=== PATIENT | female | born 1965 | race American Indian/Alaskan Native ===

== ENCOUNTER 2024-03-04 13:44 | Emergency (ER) | payer BC, OTHER ==
[~2024-03-04] VITALS: Ht 162.6 cm; Wt 114.5 kg
[2024-03-04 13:54] VITALS: TEMP 98
[2024-03-04] MEDS: normal saline 1000ml 1,000 ML IV ONE (14:12)
[2024-03-04 14:30] LABS: EOSINOPHILS # (AUTO) 0.1 X10'3 (0-0.9); EOSINOPHILS % (AUTO) 2.5 % (0-6); HEMATOCRIT 42.1 % (35.0-45.0); HEMOGLOBIN 14.6 g/dl (12.0-16.0); LYMPHOCYTES # (AUTO) 0.9 X10'3 (1.1-4.8); LYMPHOCYTES % (AUTO) 19.1 % (21-51); MEAN CORPUSCULAR HGB CONC 34.6 g/dL (33.0-36.5); MEAN CORPUSCULAR VOLUME 86.7 FL (78-98); MEAN PLATELET VOLUME 7.7 FL (7.4-10.4); MONOCYTES # (AUTO) 0.3 X10'3 (0-0.9); MONOCYTES % (AUTO) 6.2 % (2-12); NEUTROPHILS # (AUTO) 3.3 X10'3 (1.8-7.7); NEUTROPHILS % (AUTO) 71.2 % (42-75); PLATELET COUNT 286 X10'3 (140-440); RED BLOOD COUNT 4.85 X10'6 (4.20-5.60); RED CELL DISTRIBUTION WIDTH 15.1 % (11.5-14.5); WHITE BLOOD COUNT 4.7 X10'3 (4.5-11.0)
[2024-03-04 14:41] LABS: ALANINE AMINOTRANSFERASE 80 U/L (12-78); ALBUMIN 3.8 G/DL (3.4-5.0); ALBUMIN/GLOBULIN RATIO 1.1 (1.1-1.5); ALKALINE PHOSPHATASE 65 IU/L (46-116); ANION GAP 8 (8-16); ASPARTATE AMINO TRANSFERASE 41 U/L (10-37); BILIRUBIN,TOTAL 0.5 MG/DL (0.1-1.0); BLOOD UREA NITROGEN 13 MG/DL (7-18); BUN/CREATININE RATIO 18.1 (10.0-20.0); CALCIUM 8.5 MG/DL (8.5-10.1); CHLORIDE 108 MMOL/L (99-107); CREATININE 0.72 MG/DL (0.40-0.90); GLUCOSE 142 MG/DL (70-104); LIPASE 26 U/L (16-77); POTASSIUM 3.5 MMOL/L (3.5-5.1); SODIUM 142 MMOL/L (135-145); TOTAL CARBON DIOXIDE 26.1 MMOL/L (24-32); TOTAL PROTEIN 7.2 G/DL (6.4-8.2); eCRCL 74 ML/MIN; eGFR 83 ML/MIN
[2024-03-04 15:30] VITALS: BP 137/93; PULSE 94; RESP 16; O2SAT 97
[2024-03-04] MEDS ORDERED: MECL-231 PO (15:31)
[2024-03-04] MEDS: ondansetron/PF 4mg/2ml inj IV ONE (15:54)
== END 2024-03-04 16:11 | disposition home or self-care (01) ==
LOC: ER 13:44
DX: R42 Dizziness and giddiness (principal); Z88.8 Allergy status to other drugs, medicaments and biological substances
CPT/HCPCS: 36415; 80053; 83690; 85025; 93005; 96361; 96374; 99284; J2405; J7030

== ENCOUNTER 2024-03-08 18:57 | Inpatient (IN) | payer BC, OTHER ==
[~2024-03-08] VITALS: Ht 162.6 cm; Wt 113.6 kg
[~2024-03-08 18:57] MED LIST: MECL-231 PO
[2024-03-08 19:25] LABS: BASOPHILS # (AUTO) 0.1 X10'3 (0-0.2); BASOPHILS % (AUTO) 1.1 % (0-1); EOSINOPHILS # (AUTO) 0.4 X10'3 (0-0.9); EOSINOPHILS % (AUTO) 7.1 % (0-6); HEMATOCRIT 47.2 % (35.0-45.0); HEMOGLOBIN 15.9 g/dl (12.0-16.0); LYMPHOCYTES # (AUTO) 2.1 X10'3 (1.1-4.8); LYMPHOCYTES % (AUTO) 35.4 % (21-51); MEAN CORPUSCULAR HEMOGLOBIN 29.4 PG (27.0-31.0); MEAN CORPUSCULAR HGB CONC 33.7 g/dL (33.0-36.5); MEAN CORPUSCULAR VOLUME 87.3 FL (78-98); MEAN PLATELET VOLUME 7.5 FL (7.4-10.4); MONOCYTES # (AUTO) 0.5 X10'3 (0-0.9); MONOCYTES % (AUTO) 9.1 % (2-12); NEUTROPHILS # (AUTO) 2.8 X10'3 (1.8-7.7); NEUTROPHILS % (AUTO) 47.3 % (42-75); PLATELET COUNT 291 X10'3 (140-440); RED BLOOD COUNT 5.41 X10'6 (4.20-5.60); RED CELL DISTRIBUTION WIDTH 14.8 % (11.5-14.5); WHITE BLOOD COUNT 5.9 X10'3 (4.5-11.0)
[2024-03-08 19:43] LABS: ALBUMIN 3.7 G/DL (3.4-5.0); ANION GAP 9 (8-16); BLOOD UREA NITROGEN 12 MG/DL (7-18); BUN/CREATININE RATIO 13.3 (10.0-20.0); CALCIUM 8.9 MG/DL (8.5-10.1); CHLORIDE 102 MMOL/L (99-107); GLUCOSE 134 MG/DL (70-104); POTASSIUM 3.9 MMOL/L (3.5-5.1); PRO BRAIN NATRIURETIC PEPTIDE 59 PG/ML (0-125); SODIUM 136 MMOL/L (135-145); TOTAL CARBON DIOXIDE 25.4 MMOL/L (24-32); eCRCL 59 ML/MIN; eGFR 64 ML/MIN
[2024-03-08 20:51] LABS: APTT 26 SECONDS (22-32); PROTHROMBIN TIME 10.4 SECONDS (9.0-12.0)
[2024-03-08] MEDS ORDERED: magnesium 4gm in 100ml NS 100 ML IV PRN (21:55)
[2024-03-08] MEDS ORDERED: mag hydrox/Alum hydrox/simeth 30ml oral suspension PO PRN (21:55)
[2024-03-08] MEDS ORDERED: magnesium 2GM in 50ml NS 50 ML IV PRN (21:55)
[2024-03-08] MEDS ORDERED: ondansetron/PF 4mg/2ml inj IV PRN (21:55)
[2024-03-08] MEDS ORDERED: magnesium Cl slow-release 64mg tablet PO PRN (21:55)
[2024-03-08] MEDS ORDERED: magnesium hydroxide 30ml (MOM) UD suspension PO PRN (21:55)
[2024-03-08] MEDS ORDERED: potassium Cl 40MEQ/1/2NS 520ml 520 ML IV PRN (21:55)
[2024-03-08] MEDS ORDERED: potassium Cl 20 mEq SR tablet PO PRN ×2 (21:55)
[2024-03-08] MEDS: ringers solution, lacted 1,000 ML IV ONE (22:11)
[2024-03-08] MEDS: aspirin 325mg tablet PO ONE ×2 (22:11)
[2024-03-08 22:20] LABS: HEMOGLOBIN A1C 5.6 % (4.5-6.2)
[2024-03-08] MEDS: atorvastatin 20mg tablet PO SCH (22:26)
[2024-03-08] MEDS ORDERED: NAPR-56 PO (22:27)
[2024-03-08 22:49] LABS: FREE T4 (FREE THYROXINE) 0.87 NG/DL (0.73-1.40); MAGNESIUM 2.2 MG/DL (1.5-2.4); THYROID STIMULATING HORMONE 1.15 ulU/ml (0.34-4.50)
[2024-03-08 23:45] VITALS: BP 157/111; PULSE 96; TEMP 97.7; O2SAT 97
[2024-03-08 23:55] VITALS: RESP 16; O2SAT 94
[2024-03-09] VITALS (9 sets, daily range): BP systolic 127–142; BP diastolic 81–99; PULSE 76–107; RESP 14–18; TEMP 97.5–98.7; O2SAT 94–97
[2024-03-09] MEDS: normal saline 1000ml 1,000 ML IV SCH (00:30)
[2024-03-09 07:01] LABS: BASOPHILS # (AUTO) 0.1 X10'3 (0-0.2); EOSINOPHILS # (AUTO) 0.3 X10'3 (0-0.9); EOSINOPHILS % (AUTO) 6.1 % (0-6); HEMATOCRIT 42.2 % (35.0-45.0); HEMOGLOBIN 14.2 g/dl (12.0-16.0); LYMPHOCYTES # (AUTO) 1.5 X10'3 (1.1-4.8); LYMPHOCYTES % (AUTO) 27.7 % (21-51); MEAN CORPUSCULAR HEMOGLOBIN 29.4 PG (27.0-31.0); MEAN CORPUSCULAR HGB CONC 33.6 g/dL (33.0-36.5); MEAN CORPUSCULAR VOLUME 87.3 FL (78-98); MEAN PLATELET VOLUME 7.5 FL (7.4-10.4); MONOCYTES # (AUTO) 0.5 X10'3 (0-0.9); MONOCYTES % (AUTO) 9.4 % (2-12); NEUTROPHILS % (AUTO) 55.8 % (42-75); PLATELET COUNT 283 X10'3 (140-440); RED BLOOD COUNT 4.84 X10'6 (4.20-5.60); RED CELL DISTRIBUTION WIDTH 14.9 % (11.5-14.5); WHITE BLOOD COUNT 5.3 X10'3 (4.5-11.0)
[2024-03-09 07:20] LABS: ANION GAP 9 (8-16); BLOOD UREA NITROGEN 17 MG/DL (7-18); CALCIUM 8.4 MG/DL (8.5-10.1); CHLORIDE 106 MMOL/L (99-107); CHOL/HDL RATIO 2.8 (0.00-4.99); CHOLESTEROL 132 MG/DL (0-200); CREATININE 0.74 MG/DL (0.40-0.90); GLUCOSE 123 MG/DL (70-104); HDL CHOLESTEROL 48 MG/DL (35-60); LDL CHOLESTEROL 77 MG/DL (50-100); POTASSIUM 3.6 MMOL/L (3.5-5.1); SODIUM 141 MMOL/L (135-145); TOTAL CARBON DIOXIDE 25.7 MMOL/L (24-32); TRIGLYCERIDES 79 MG/DL (20-135); eCRCL 72 ML/MIN; eGFR 81 ML/MIN
[2024-03-09] MEDS: K and/or MAG REPLACEMENT MC SCH (08:00)
[2024-03-09] MEDS: aspirin 81mg, enteric-coated 1 TAB TABLET.DR PO SCH (08:08)
[2024-03-09] MEDS: acetaminophen 325mg tablet PO PRN ×2 (09:05→19:33)
[2024-03-09] MEDS ORDERED: regadenoson 0.4mg/5ml syringe IV PRN (10:40)
[2024-03-09] MEDS ORDERED: aminophylline 250mg/10ml inj. IV PRN (10:40)
[2024-03-09] MEDS ORDERED: metoprolol tartrate 1mg/ml inj IV PRN (10:40)
[2024-03-09] MEDS: nitroGLYCERIN 0.4mg SUBLingual tab SL PRN (13:53)
[2024-03-10] MEDS ORDERED: atorvastatin 20mg tablet PO SCH (08:00)
== END 2024-03-09 20:30 | disposition left against medical advice (07) | DRG 93 ==
LOC: ER 18:57 → UNDOADMIN 22:01 → ORTHO 4S 22:01
PROVIDERS: ADMIT Surgery Surgical Critical Care; ATTEND Family Medicine
PROC: B3251ZZ Computerized Tomography (CT Scan) of Bilateral Common Carotid Arteries using Low Osmolar Contrast (ICD-10-PCS; principal; 2024-03-08)
PROC: B32G1ZZ Computerized Tomography (CT Scan) of Bilateral Vertebral Arteries using Low Osmolar Contrast (ICD-10-PCS; 2024-03-08)
PROC: B32R1ZZ Computerized Tomography (CT Scan) of Intracranial Arteries using Low Osmolar Contrast (ICD-10-PCS; 2024-03-08)
PROC: B3281ZZ Computerized Tomography (CT Scan) of Bilateral Internal Carotid Arteries using Low Osmolar Contrast (ICD-10-PCS; 2024-03-08)
DX: R20.2 Paresthesia of skin (principal); Z53.21 Procedure and treatment not carried out due to patient leaving prior to being seen by health care provider; R42 Dizziness and giddiness; R20.0 Anesthesia of skin; R79.89 Other specified abnormal findings of blood chemistry; Z88.5 Allergy status to narcotic agent; Z79.899 Other long term (current) drug therapy
CPT/HCPCS: 36415; 70551; 71045; 80048; 80061; 83036; 83735; 83880; 84439; 84443; 84484; 85025; 85610; 85730; 86885; 86900; 86901; 87081; 93005; 93306; A9500; G0378; J7030; J7120

== ENCOUNTER 2024-05-19 09:38 | Outpatient (CLI) | payer BC, OTHER ==
[~2024-05-19] VITALS: Ht 162.6 cm; Wt 99.8 kg
[~2024-05-19 09:38] MED LIST changes: +NAPR-56 PO
[2024-05-19] MEDS: albuterol 2.5 MG/3 ML nebule NEB ONE (10:05)
[2024-05-19 10:06] VITALS: PULSE 86; RESP 18; O2SAT 94
[2024-05-19 10:17] VITALS: PULSE 87; RESP 18
== END 2024-05-19 23:59 | disposition home or self-care (01) ==
LOC: RT 09:38
PROVIDERS: ATTEND Nurse Practitioner Family
DX: R94.2 Abnormal results of pulmonary function studies (principal); J44.1 Chronic obstructive pulmonary disease with (acute) exacerbation
CPT/HCPCS: 94060; 94760; J7120; C1758

== ENCOUNTER 2024-12-17 09:07 | Emergency (ER) | payer BC, OTHER ==
[~2024-12-17] VITALS: Ht 162.6 cm; Wt 103.7 kg
[2024-12-17] MEDS: fentaNYL/PF 50MCG/1 ML 2ML syringe IV ONE (10:07)
[2024-12-17] MEDS: ondansetron/PF 4mg/2ml inj IV ONE (10:08)
[2024-12-17] MEDS: normal saline 1000ML IV soln IVB ONE (10:08)
[2024-12-17 10:19] LABS: BILIRUBIN,URINE NEGATIVE (Neg); CLARITY,URINE CLEAR (Clear); COLOR,URINE YELLOW (Yellow); GLUCOSE, URINE NEGATIVE (Neg); KETONES,URINE NEGATIVE (Neg); LEUKOCYTE ESTERASE ,URINE NEGATIVE (Neg); NITRITES, URINE NEGATIVE (Neg); OCCULT BLOOD,URINE LARGE (Neg); PH,URINE 5.5 (4.8-8.0); PROTEIN,URINE NEGATIVE (Neg); UROBILINOGEN,URINE 0.2 E.U/dL (0.2-1.0)
[2024-12-17 10:32] LABS: BASOPHILS # (AUTO) 0.1 X10'3 (0-0.2); BASOPHILS % (AUTO) 0.9 % (0-1); EOSINOPHILS # (AUTO) 0.2 X10'3 (0-0.9); EOSINOPHILS % (AUTO) 2.6 % (0-6); HEMATOCRIT 41.1 % (35.0-45.0); HEMOGLOBIN 14.1 g/dl (12.0-16.0); LYMPHOCYTES # (AUTO) 1.2 X10'3 (1.1-4.8); LYMPHOCYTES % (AUTO) 14.6 % (21-51); MEAN CORPUSCULAR HGB CONC 34.3 g/dL (33.0-36.5); MEAN CORPUSCULAR VOLUME 87.3 FL (78-98); MEAN PLATELET VOLUME 7.5 FL (7.4-10.4); MONOCYTES # (AUTO) 0.6 X10'3 (0-0.9); MONOCYTES % (AUTO) 6.9 % (2-12); NEUTROPHILS # (AUTO) 6.3 X10'3 (1.8-7.7); PLATELET COUNT 307 X10'3 (140-440); RED BLOOD COUNT 4.71 X10'6 (4.20-5.60); RED CELL DISTRIBUTION WIDTH 14.2 % (11.5-14.5); WHITE BLOOD COUNT 8.4 X10'3 (4.5-11.0)
[2024-12-17 10:45] LABS: ALANINE AMINOTRANSFERASE 40 U/L (12-78); ALBUMIN 3.6 G/DL (3.4-5.0); ALBUMIN/GLOBULIN RATIO 0.9 (1.1-1.5); ALKALINE PHOSPHATASE 77 IU/L (46-116); ANION GAP 12 (8-16); ASPARTATE AMINO TRANSFERASE 23 U/L (10-37); BILIRUBIN,DIRECT 0.1 MG/DL (0-0.3); BILIRUBIN,TOTAL 0.3 MG/DL (0.1-1.0); BLOOD UREA NITROGEN 17 MG/DL (7-18); BUN/CREATININE RATIO 23.9 (10.0-20.0); CALCIUM 8.7 MG/DL (8.5-10.1); CHLORIDE 107 MMOL/L (99-107); CREATININE 0.71 MG/DL (0.40-0.90); GLUCOSE 130 MG/DL (70-104); LIPASE 26 U/L (16-77); POTASSIUM 3.7 MMOL/L (3.5-5.1); SODIUM 142 MMOL/L (135-145); TOTAL CARBON DIOXIDE 23.4 MMOL/L (24-32); TOTAL PROTEIN 7.6 G/DL (6.4-8.2); eCRCL 74 ML/MIN; eGFR 84 ML/MIN
[2024-12-17 11:01] LABS: UA COLLECTION TYPE CLN CATCH MIDSTREAM
[2024-12-17 11:03] LABS: RBC,URINE 20-50 /HPF (0-2); WBC,URINE NONE SEEN /HPF (0-4)
[2024-12-17 11:04] LABS: BACTERIA,URINE FEW /HPF (Neg); MUCUS STRANDS NONE SEEN /LPF (Neg); SQUAMOUS EPITHELIAL CELL,UR NONE SEEN /LPF (FEW)
[2024-12-17] MEDS ORDERED: iohexol 300mg/ml 100ml inj. ONE (11:14)
[2024-12-17] MEDS: ketorolac trometh 15mg/ml vial 15 MG/ML ML IV ONE ×2 (11:45→12:45)
[2024-12-17] MEDS ORDERED: FLO0.4C PO (12:47)
[2024-12-17 13:07] VITALS: BP 133/99; PULSE 71; RESP 17; TEMP 98.1; O2SAT 99
== END 2024-12-17 13:06 | disposition home or self-care (01) ==
LOC: ER 09:08
DX: N20.1 Calculus of ureter (principal); Z90.49 Acquired absence of other specified parts of digestive tract; Z88.8 Allergy status to other drugs, medicaments and biological substances
CPT/HCPCS: 36415; 74177; 80048; 80076; 81001; 83690; 85025; 96361; 96374; 96375; 99285; J1885; J2405; J7030; Q9967

== ENCOUNTER 2025-05-13 19:57 | Emergency (ER) | payer BC, OTHER ==
[~2025-05-13] VITALS: Ht 162.6 cm; Wt 107.3 kg
[~2025-05-13 19:57] MED LIST changes: +FLO0.4C PO
[2025-05-13 20:58] VITALS: BP 132/99; PULSE 103; RESP 14; O2SAT 95
--- NOTE | 2025-05-13 21:29 | RADIOLOGY REPORT ---
CLINICAL INDICATION: Fall, pain TECHNIQUE: 2 views DI TIB/FIB 2 VWS Comparison: Same-day left knee radiographs FINDINGS: No evidence of fracture. The knee is better assessed on comparison exam, in the ankle is congruent wi th mild degenerative change. Proximal pretibial soft tissue prominence. Several soft tissue calcifica tions are likely vascular. IMPRESSION: 1. No acute osseous finding of the left lower leg, with the knee better assessed on dedicated compari son radiographs. 2. Proximal soft tissue swelling may be acute/traumatic or chronic.
--- NOTE | 2025-05-13 21:31 | RADIOLOGY REPORT ---
CLINICAL INDICATION: Fall, pain TECHNIQUE: 3 radiographic views of the left knee were obtained. Comparison: None FINDINGS/IMPRESSION: There is mild depression of the lateral tibial plateau of unknown chronicity without significant ass ociated joint effusion. Otherwise, no evidence of acute traumatic fractures or dislocation. If sympt oms persist, CT should be considered for further evaluation. Moderate tricompartmental degenerative changes of the knee. The alignment is anatomical.
--- NOTE | 2025-05-13 21:36 | Physician Documentation ---
History of Present Illness ~ Chief Complaint: Leg Pain Stated Complaint: FALL Time Seen by MD: 20:50 Primary Medical Doctor: Irene Andrea HPI Patient is a 59-year-old female that presents to the emergency department for evaluation of lower left extremity pain x1 week patient reports that she fell down landing on her knees and shins approximately 1 week ago mechanical ground level fall. Patient reports pain has been progressive over the course of the last week. Patient reports that her left leg is much more swollen and warm than her right leg. Patient denies history of DVTs or clots. Patient reports that she does not take blood thinners. Tetanus witin 5 years: Yes Medication Reconciliation Allergies: Coded Allergies: Opioids - Morphine Analogues (Unverified Allergy, Intermediate, THROAT NUMBNESS, 03/04/24) Scheduled Meclizine Hcl (Meclizine Hcl), 1 TAB PO Q8H Naproxen (Naproxen), 1 TAB PO Q12H, (Reported) Tamsulosin Hcl (Flomax), 1 CAP PO DAILY Past Medical History Patient History: FH: CABG (coronary artery bypass surgery) FH: CVA (cerebrovascular accident) FH: cancer FH: heart disease FH: lupus Review of Systems ROS As stated above in the HPI, otherwise all systems are reviewed and negative. Physical Exam Vital Signs: Temperature: 98.2, Source: Oral, Heart Rate: 103, Respiratory Rate: 14, BP: 132/99, Pulse Oximetry: 95, Weight: 107.300 Physical Exam VITALS: Reviewed and as above. GENERAL: Alert, no apparent distress. HEENT: Normocephalic, atraumatic, PERRL, EOMI, dry mucosa, no erythema RESPIRATORY: Lungs clear, normal breath sounds, no respiratory distress. CHEST: No accessory muscle use, no retractions CV: Regular rate, rhythm, no edema, no murmur, No: JVD GI: Soft, non-tender, bowels sounds present, no rebound, guarding, or rigidity BACK: No CVA tenderness, or swelling MUSCULOSKELETAL No deformities, edema noted to the lower left extremity, patient was palpation and examination, reduced range of motion during exam. SKIN: Warm and dry, edema bruising noted to the lower left extremity. 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 Patient for DVT on ultrasound. Sharpe's cyst noted on vascular scan. The Pt is otherwise well appearing, hemodynamically stable, and shows no evidence of neurovascular injury or compartment syndrome. Patient was placed in patient wrap for compression and support. Patient will follow up with ortho. Patient will follow up with primary care provider regarding Sharpe's cyst. Patient provided with strict return precautions. Patient presents with left knee and left lower extremity pain. Given history, exam and workup patient likely has soft tissue injury and bruising secondary to a fall 1 week ago. I have low suspicion for fracture, dislocation, significant ligamentous injury, septic arthritis, gout flare, new autoimmune arthropathy, or gonococcal arthropathy. We will follow up with primary care provider. Provided with strict return precautions. General Diff Dx:Considerations: Include: Abrasion, Contusion, Fracture, Hematoma, Laceration, Malunion, Neurovascular injury, Open fracture, Sprain, Ulcer, Other Knee Diff Dx:Considerations: Include: Abrasion, Arthritis, Contusion, DJD, Fracture-femur, Fracture-fibula, Fracture-patella, Fracture-tibia, Gout, Hematoma, Laceration, Meniscus injury, Neurovascular injury, Open fracture, Rheumatoid arthritis, Septic, Sprain, Sprain-MCL, Sprain-LCL, Sprain-ACL, Sprain-PCL, Other Departure Disposition: 01 HOME / SELF CARE / HOMELESS Impression: Primary Impression: Lower extremity sprain Additional Impressions: Traumatic injury Superficial bruising Swelling Pain Condition: Stable Discharge Instructions: Sharpe Cyst, RICE Therapy for Routine Care of Injuries, [id number] Additional Instructions: The Pt was found to have a fracture on x-ray. Patient for DVT on ultrasound. Sharpe's cyst noted on vascular scan. The Pt is otherwise well appearing, hemodynamically stable, and shows no evidence of neurovascular injury or compartment syndrome. Patient was placed in patient wrap for compression and support. Patient will follow up with ortho. Patient will follow up with primary care provider regarding Sharpe's cyst. Patient provided with strict return precautions. Patient presents with left knee and left lower extremity pain. Given history, exam and workup patient likely has soft tissue injury and bruising secondary to a fall 1 week ago. I have low suspicion for fracture, dislocation, significant ligamentous injury, septic arthritis, gout flare, new autoimmune arthropathy, or gonococcal arthropathy. We will follow up with primary care provider. Provided with strict return precautions. Tylenol ibuprofen as needed for discomfort. Rest ice and elevation as tolerated. Please follow up with her primary care provider. Please return to the emergency department with any worsening or recurrent symptoms or any additional concerning symptoms that we discussed here today i.e. increased pain increased swelling increased erythema, numbness or tingling, fever chills or any other concerning symptoms. Referrals: NO PRIMARY CARE PROVIDER (PCP) Education Educated: Patient Educated regarding: diagnosis, treatment, need for follow up Signature Scribe Signature: A Attestation: Scribed for Andriy Ortega by NAVARRO Mullins . 05/13/25 23:20 ANDRIY ORTEGA May 13, 2025 21:36
[2025-05-13 23:25] VITALS: TEMP 98.2
--- NOTE | 2025-05-13 23:35 | VASCULAR REPORT ---
Left lower extremity venous duplex Clinical History: Left lower extremity pain /swelling status post fall 1 week prior Comparison: None Technique: Duplex Doppler evaluation of the deep venous system of the left lower extremity from the common femor al vein to the popliteal vein including color Doppler and spectral/pulsed waveform analysis was perfo rmed. Findings: The common femoral vein demonstrates appropriate compressibility and waveform variability. There is compressibility/patency of the great saphenous vein at the proximal thigh. The femoral vein demonstrates appropriate compressibility and waveform variability. The deep femoral vein demonstrates appropriate compressibility and waveform variability. The popliteal vein demonstrates appropriate compressibility and waveform variability. There is normal compressibility at the tibioperoneal trunk. The right common femoral vein appears normal. Small incompletely assessed cystic lesion in the popliteal fossa. Impression: 1. No left femoropopliteal venous thrombosis.
--- NOTE | 2025-05-14 01:46 | VASCULAR REPORT ---
Left Lower Extremity Arterial Duplex Clinical History: Left lower extremity pain status post fall 1 week ago Comparison: None Technique: Duplex Doppler evaluation including color Doppler and spectral/pulsed waveform analysis of the lower extremity arteries was performed. Findings: LEFT: Peak systolic velocities are as follows: SALES REPRESENTATIVE MEATS 79 cm/s Deep femoral 63 cm/s SFA proximal 112 cm/s SFA mid-portion 108 cm/s SFA distal 76 cm/s Popliteal 71 cm/s Posterior tibial 103 cm/s Peroneal 62 cm/s Dorsalis pedis 62 cm/s The waveforms are triphasic. IMPRESSION: 1. No hemodynamically significant stenosis based on peak systolic velocity criteria. 2. REFERENCE VALUES, [facility]) vascular Imaging Lab Criteria: Peak systolic velocity r anges (in cm/sec) are as follows: 3. <150 cm/s - <20 % stenosis 4. 150-200 cm/s - 20-49% stenosis 5. 200-300 cm/s - 50-75% stenosis 6. >300 cm/s -> 75% stenosis
== END 2025-05-13 23:28 | disposition home or self-care (01) ==
LOC: ER 19:58
DX: S93.692A Other sprain of left foot, initial encounter (principal); S80.12XA Contusion of left lower leg, initial encounter; Z88.5 Allergy status to narcotic agent; Z79.899 Other long term (current) drug therapy; W18.39XA Other fall on same level, initial encounter; Y93.89 Activity, other specified; Y92.89 Other specified places as the place of occurrence of the external cause; Y99.8 Other external cause status
CPT/HCPCS: 73564; 73590; 93926; 93971; 99284